=== PATIENT | male | born 1990 | race Caucasian/White ===

== ENCOUNTER 2017-07-25 20:19 | Emergency (ER) | payer SELFPAY ==
[2017-07-25 20:43] VITALS: BP 135/57
== END 2017-07-25 21:47 | disposition left against medical advice (07) ==
LOC: ER 20:19
DX: Z53.21 Procedure and treatment not carried out due to patient leaving prior to being seen by health care provider (principal)

== ENCOUNTER 2017-07-27 15:40 | Emergency (ER) | payer OTHER ==
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
[2017-07-27 18:23] VITALS: BP 122/61
== END 2017-07-27 18:26 | disposition home or self-care (01) ==
LOC: ER 15:40
DX: S22.021A Stable burst fracture of second thoracic vertebra, initial encounter for closed fracture (principal); V49.40XA Driver injured in collision with unspecified motor vehicles in traffic accident, initial encounter; R51 Headache; M54.2 Cervicalgia; M54.5 Low back pain; F17.210 Nicotine dependence, cigarettes, uncomplicated; Z71.6 Tobacco abuse counseling; R09.82 Postnasal drip; J34.89 Other specified disorders of nose and nasal sinuses
CPT/HCPCS: 72110; 72125; 99284; 99406; L0120; L0172